=== PATIENT | male | born 1990 | race Caucasian/White ===

== ENCOUNTER 2017-01-25 11:14 | Emergency (ER) | payer SELFPAY ==
[~2017-01-25] VITALS: Ht 175.3 cm; Wt 74.0 kg
[2017-01-25 11:25] VITALS: Ht 175.3 cm; Wt 74.0 kg
[2017-01-25] MEDS ORDERED: LIDOCAINE 1% (MDV) 20 ML INJ SC ONE (13:00)
--- NOTE | 2017-01-25 13:45 | RADRPT ---
PROCEDURE: Right third digit series CLINICAL INDICATION: Infection. Pain TECHNIQUE: 3 views. COMPARISON: None FINDINGS: No fractures are noted. Joint spaces are well maintained. No erosions are identified. Soft tissue swelling is noted in the proximal right third digit. IMPRESSION: 1. No bony abnormalities are identified. . 2. Soft tissue swelling in the proximal right third digit. RPTAT: HH .Solomon Blair MD, MD Date Time Electronically viewed and signed by .Solomon Blair MD, on 01/25/2017 13:45 .G/
--- NOTE | 2017-01-25 13:51 | ERD ---
ER Documentation Chief Complaint Date/Time DATE: 01/25/17 TIME: 13:48 Chief Complaint PT with R hand middle finger redness and swelling X 5 days. HPI This 26-year-old male presents with pain and swelling on the dorsum of the right middle finger worsening over the last 5 days. He was seen in urgent care prescribed Bactrim and Keflex and upon follow-up today there was concern about some persistent redness and swelling. He was referred to the ER for evaluation of flexor tenosynovitis although the symptoms are on the extensor side. Denies any fevers. He has restricted range of motion due to pain and redness and swelling. ROS All systems reviewed and are negative except as per history of present illness. Allergies Allergies: Coded Allergies: No Known Drug Allergy (Verified Allergy, Unknown, 04/24/09) PMhx/Soc Medical and Surgical Hx: pt denies Medical Hx, pt denies Surgical Hx Hx Alcohol Use: Yes Hx Substance Use: No Hx Tobacco Use: Yes Smoking Status: Current some day smoker Physical Exam Vitals Vital Signs Date Time Temp Pulse Resp B/P Pulse Ox O2 Delivery O2 Flow Rate FiO2 01/25/17 11:25 98.0 90 14 119/78 99 Physical Exam Const: [], [id number]. Head: Atraumatic Eyes: Normal Conjunctiva ENT: Normal External Ears, Nose and Mouth. Neck: Full range of motion..~ No meningismus. Resp: Clear to auscultation bilaterally Cardio: Regular rate and rhythm, no murmurs Abd: Soft, non tender, non distended. Normal bowel sounds Skin: No petechiae or rashes Back: No midline or flank tenderness Ext: No cyanosis, or edema. There is some erythema and fluctuance and redness across the dorsum of the right middle finger proximally. There is no extension beyond the MCP joint or the PIP joint. There is no active discharge. There is a small central pustule. There is no appreciation of significant proximal tendon tenderness. Neur: Awake and alert Psych: Normal Mood and Affect Results 24 hrs Current Medications Medications (Trade) Dose Ordered Sig/Kay Route PRN Reason Start Time Stop Time Status Last Admin Dose Admin Lidocaine (Xylocaine 1% (Mdv) 20 ml) 20 ml ONCE ONCE SC 01/25/17 13:00 01/25/17 13:01 DC Procedures/MDM X-ray right middle finger 2V Interpreted by me: Bones: [No fracture] Joints: [No dislocation] Foreign body: [None]. Impression-normal right middle finger x-ray Procedure note-the right middle finger was prepped with Betadine. 3 cc of lidocaine was used for local infiltration. #11 scalpel was used to incise the area of fluctuance. Positive pus was expressed and loculations broken up with a probe and the wound was packed with approximately 4 cm of quarter-inch gauze. Wound was then dressed. Patient presents with an abscess in the dorsum of his right middle finger. There is no current evidence to suggest flexor tenosynovitis, sepsis, osteomyelitis. He will be discharged home with instructions to continue Bactrim and Keflex and recommend wound check in 2 days for gauze removal. He should return sooner for worsening redness, fevers, new symptoms. Departure Diagnosis: Primary Impression: Abscess Condition: Stable Patient Instructions: Abscess, Incision And Drainage Additional Instructions: Recheck in 2 days for gauze removal. Recheck sooner for worsening redness, fevers, new symptoms. Continue antibiotics at home. Keep wound covered. SUNITA FELDMAN MD Jan 25, 2017 13:50
== END 2017-01-25 14:00 | disposition home or self-care (01) ==
LOC: FTE 11:14
DX: L02.511 Cutaneous abscess of right hand (principal); F17.210 Nicotine dependence, cigarettes, uncomplicated
CPT/HCPCS: 73140

== ENCOUNTER 2017-01-27 05:55 | Emergency (ER) | END 2017-01-27 06:49 | disposition home or self-care (01) | DX: L02.511 Cutaneous abscess of right hand (principal); F17.210 Nicotine dependence, cigarettes, uncomplicated ==

== ENCOUNTER 2017-01-29 06:28 | Emergency (ER) | payer OTHER ==
[~2017-01-29] VITALS: Ht 172.7 cm; Wt 75.5 kg
[2017-01-29 06:29] VITALS: Ht 172.7 cm; Wt 75.5 kg
--- NOTE | 2017-01-29 06:40 | ERD ---
ER Documentation Chief Complaint Date/Time DATE: 01/29/17 TIME: 06:38 Chief Complaint wound recheck of r. 3rd finger HPI 26-year-old male who presents to emergency department for recheck of his right middle/third finger wound/abscess. Denies headache, loss of consciousness, dizziness, blurry vision, changes in vision, photophobia, facial pain, ear pain, throat pain, difficulty swallowing, neck pain, shoulder pain, chest pain, cough, hemoptysis, abdominal pain, back pain, loss of appetite, nausea, vomiting, hematochezia, diarrhea, constipation, urinary symptoms, bladder and bowel incontinences, extremity weakness, extremity tenderness, numbness or tingling sensation, difficulty walking, recent travel, recent exposure to illness, fever, chills. Allergy: No known drug allergies. PMH: No past medical history. Medications: Reviewed. Surgery: Left meniscal surgery/ACL, appendectomy. Family history: Noncontributory. Primary Social History: Works at [employer]. Occasionally smokes cigarettes. Occasional drinks alcoholic beverage. Denies use of illegal drugs. Denies smoking, use of alcohol, use of illegal drugs. ROS All systems reviewed and are negative except as per history of present illness. Allergies Allergies: Coded Allergies: No Known Drug Allergy (Verified Allergy, Unknown, 01/29/17) PMhx/Soc History of Surgery: Yes (L ACL, meniscus) Anesthesia Reaction: No Hx Neurological Disorder: No Hx Respiratory Disorders: No Hx Cardiac Disorders: No Hx Psychiatric Problems: No Hx Miscellaneous Medical Probl: No Hx Alcohol Use: Yes Hx Substance Use: No Hx Tobacco Use: Yes Physical Exam Vitals Vital Signs Date Time Temp Pulse Resp B/P Pulse Ox O2 Delivery O2 Flow Rate FiO2 01/29/17 06:29 97.9 67 18 120/67 Physical Exam CONSTITUTIONAL: Well-appearing; well-nourished; in no apparent distress. HEAD: Normocephalic; atraumatic. EYES: Conjunctiva clear, sclera non-icteric, EOM intact. PERRL Ears: Hearing intact. EACs clear, TMs non-bulging, non-inflamed, translucent & mobile, ossicles normal appearance, No obstructions, no erythema, no discharges Nose: No obstructions. No polyps. No external lesions. Mucosa non-inflamed. No external lesions, septum and turbinates normal. No rhinorrhea. No discharges. Frontal sinus is non-tender to palpation. Maxillary sinus is non-tender to palpation. MOUTH: Moist mucous membranes, no lesion, no obstructions, no vesicles, no thrush, patent airway Throat: Uvula in midline. Right tonsil is +1 with no erythema, no exudate. Left tonsil is +1 with no erythema, no exudate. Tolerating secretions well. Good gag reflex. Patent airway. Neck: Supple, without lesions, bruits, or adenopathy. No mass. Thyroid non- enlarged and non-tender to palpation. CHEST: Symmetrical chest. Respirations even and not labored. No retractions noted. CARDIOVASCULAR: Normal S1, S2. RRR. No murmurs, gallops. RESPIRATORY: Normal chest excursion with respiration; breath sounds clear and equal bilaterally; no wheezes, rhonchi, or rales. Breathing even and unlabored. Speaking in clear, full, and complete sentences w/ ease. ABDOMEN: Normal bowel sounds normal. Soft, round, non-distended, non-guarding, no tenderness, no rebound, no organomegaly, no masses, no pulsating abdominal mass. No hernia. No peritoneal signs. : No CVA tenderness. BACK: Symmetrical shoulder. Spine is midline without deformity, tenderness. No evidence of trauma or deformity. PELVIS: Stable pelvis. No evidence of trauma or deformity. MUSCULOSKELETAL: Normal gait and station. No misalignment, asymmetry, crepitation, defects, tenderness, masses, effusions, decreased range of motion, instability, atrophy or abnormal strength or tone in the head, neck, spine, ribs , pelvis or extremities. No calf tenderness. NEUROVASCULAR: Distal pulses are present. Pedal pulse are present, equal, and normal. Capillary refills are < 2 seconds. NEUROLOGIC: Alert and oriented x4. Speaks full and clear sentences. Cranial Nerves II-XII normal. Sensation to pain, touch, and proprioception normal. Grossly unremarkable. No neurologic deficits. Romberg test is negative. PSYCHOLOGICAL: The patients mood and manner are appropriate. No hallucinations , delusions. Not SI. Not HI. Has the capacity to decide for self SKIN: Normal for age and ethnicity; warm; dry; good turgor; no apparent lesions or exudates. No rashes, hives, discoloration. Intact. Right middle/third finger dorsal area healing wound abscess. No signs of tendon injury. Good flexion and extension with a score of 5/5. No neurovascular deficits. Right hand is good and full function. Procedures/MDM Examination: Right middle/third finger dorsal area healing wound abscess. Has good and full function of right hand/wrist/fingers with good function of flexion and extension with a score of 5/5. No neurovascular deficits. Disease process, medical treatment was explained to the patient and family member. They verbalized understanding and agreed with the diagnostic tests, medical treatment, and follow-up care. Treatment: Continue his previously prescribed medication/antibiotics. Re-evaluation: No neurovascular deficits. Consultation: None. Differential diagnosis: Wound check. Medical decision makin-year-old male who presents to emergency department for recheck of his right middle/third finger wound/abscess. Patient's complaint , patient's history about his complaint, my physical findings, my reevaluation are consistent with my final diagnosis of wound check. No neurovascular deficits. Hemodynamically stable on discharge. Medications prescribed are the following: Continue his prescribed medications at home. Patient and family member are made aware of the side effects and adverse reactions of the medications prescribed. Instructed on when to seek emergent and medical attention in case allergic/anaphylactic reactions or severe side effects and or adverse reactions to medications. Patient and family member verbalized understanding. Patient instructed Instructed to follow-up with his PCP in 24-48 hours. Instructed to Call 911 for chest pain, shortness of breath. Advised to come back here in ED as soon as possible for severity of symptoms which includes but not limited to: any new symptoms; shortness of breath/difficulty of breathing; cardiovascular changes; severe gastrointestinal symptoms; signs and symptoms of bleeding and or infection; signs of compartment syndrome/neurovascular changes; neurological changes/deficits. Patient and family member verbalized understanding. Upon discharge, patient is alert and oriented x 4, speaks full and clear sentences, denies pain, has no neurological deficits, has no neurovascular deficits, difficulty of breathing. Breathing even and unlabored. Lung sounds are clear to auscultation. Not in distress. Appears comfortable. Ambulatory with steady gait. Appears satisfied with care provided here in ED. Departure Diagnosis: Primary Impression: Visit for wound check Condition: Good Additional Instructions: Instructed to follow-up with his PCP in 24-48 hours. Instructed to Call 911 for chest pain, shortness of breath. Advised to come back here in ED as soon as possible for severity of symptoms which includes but not limited to: any new symptoms; shortness of breath/difficulty of breathing; cardiovascular changes; severe gastrointestinal symptoms; signs and symptoms of bleeding and or infection; signs of compartment syndrome/neurovascular changes; neurological changes/deficits. Patient and family member verbalized understanding. ARABELLA HERNANDEZ Jan 29, 2017 06:40
== END 2017-01-29 06:44 | disposition home or self-care (01) ==
LOC: FTE 06:28
DX: Z48.01 Encounter for change or removal of surgical wound dressing (principal)
CPT/HCPCS: 99281